=== PATIENT | male | born 1970 | race Caucasian/White ===

== ENCOUNTER 2019-11-11 07:31 | Outpatient (CLI) | payer OTHER, SELFPAY ==
--- NOTE | 2019-11-11 07:39 | NM_ITS ---
WS: [id number] NUCLEAR MEDICINE HIDA SCAN CLINICAL INFORMATION: RUQ PAIN TECHNIQUE: Following intravenous administration of 8.1 mCi of technetium 99m mebrofenin, images of th e abdomen were obtained over the course of 60 minutes. Next, gallbladder ejection fraction was determ ined by obtaining preprandial and one-hour postprandial images of the gallbladder following oral luis stion of Ensure. COMPARISON: Ultrasound 12 [id number] FINDINGS: Normal hepatic uptake at 5 minutes. Gallbladder is visualized by 10 minutes. No evidence of acute cho lecystitis. Normal small bowel activity. No evidence of choledocholithiasis. Normal common bile duct. Gallbladder ejection fraction 52% within normal limits. No evidence of chronic cholecystitis. NM/NM hepatobiliary w phar* [id number] IMPRESSION: 1. No evidence of acute or chronic cholecystitis. 2. Gallbladder ejection fraction 52% within normal limits
== END 2019-11-11 07:32 | disposition home or self-care (01) ==
PROVIDERS: Family Provider Nurse Practitioner; PCP Family Medicine; Visit Provider Surgery
DX: R10.11 Right upper quadrant pain (principal)
CPT/HCPCS: 78227; A9537

== ENCOUNTER 2019-12-19 06:19 | Day surgery (SDC) | payer OTHER, SELFPAY ==
[2019-12-19] VITALS (16 sets, daily range): BP systolic 123–168; BP diastolic 66–105; PULSE 60–92; RESP 16–20; TEMP 35.9–36.5; O2SAT 91–98; BMI 28.3
--- NOTE | 2019-12-19 08:37 | W.PM.OPSUD ---
Surgery/Procedure H&P Update DATE OF PROCEDURE: December 19, 2019 DATE H&P PERFORMED: 12/13/19 H&P UPDATE INFORMATION: H&P completed within last 30 days and No changes to prior documentation PREOP DIAGNOSIS: Chronic cholecystitis PLANNED PROCEDURE: Operation Date: 12/19/19 09:35 Proposed Procedures p [place] [address] R14.0(Not Applicable) - Oneil Peterson MD
--- NOTE | 2019-12-19 08:39 | P.ANESASSM_ITS ---
Pre-Anesthetic Assessment Pre-Anesthetic Assessment: Height/Weight: Height 1.75 m Weight 87.09 kg Temp Pulse Resp BP Pulse Ox 96.7 F L 69 18 154/105 98 12/19/19 06:46 12/19/19 06:46 12/19/19 06:46 12/19/19 06:46 12/19/19 06:46 Preop Diagnosis: Chronic cholecystitis Proposed Procedure: Operation Date: 12/19/19 09:35 Proposed Procedures p Laparoscopic [place]cyst[place] 52762 R14.0(Not Applicable) - Oneil Peterson MD Last intake: Intake Last Liquid Date 12/18/19 Last Liquid Time 19:00 Social: Social History: Alcohol (occ) and Tobacco Exam: Pre-Anes Outpt Exam: alert, oriented x 3, clear to auscultation bi laterally and regular rate & rhythm Airway: Submandibular: WNL Cervical ROM: WNL MP: 1 Dentition: Other (teeth ok) History/ROS: No significant history except as noted Pulmonary: Pulmonary: Sleep apnea CV/HEM: CV/HEM: CAD (stent placed in 1993) and HTN Comments: PPM : : None reported Hepatic: Hepatic: None reported GI: GI: GERD Musc/skel: Musc/skel: OA/DJD Neuropsych: Neuropsych: None reported Anesthetic Plan: ASA status: 3 Anesthesia: Anesthesia Evaluation and General Risk of > 500 ml blood loss (7ml/kg in children): No PFSH Anesthesia PFSH: Social History Smoking and tobacco status: former smoker Alcohol intake: never Lives independently: Yes Household members: spouse Marital status: Current occupational status: employed History of recent travel: No Data Anesthesia Cardiac Studies: No Data to Display
--- NOTE | 2019-12-19 11:40 | PM.OP ---
Operative Report Date of procedure: December 19, 2019 Pre-op Diagnosis: Chronic cholecystitis Post-op diagnosis: same Procedure Done: Laparoscopic cholecystectomy Pathology: Gallbladder Surgeon: Oneil Peterson Anesthesia: General Estimated blood loss (mL): 100 Condition: stable Disposition: PACU Procedure: The patient was taken to the operating room and was intubated under general anesthesia. After the antibiotic had been administered, the abdomen was prepped and draped in a sterile manner. Using a #15 blade, a 1 centimeter infraumbilical curvilinear incision was made and using an open Rubia technique the peritoneal cavity was entered. A 10 millimeter port was placed and 15 millimeters of pneumoperitoneum was created. A 10 millimeter, 30 degrees scope was then introduced. Three 5 millimeter ports were placed in the epigastric, midclavicular and the anterior axillary line two fingerbreadths below the costal margin on the right side under the direct visualization. Ratcheted forceps were introduced into the lateral most port and was used to retract the fundus of the gallbladder cephalad and using forceps the infundibulum of the gallbladder was retracted laterally. Using L-hook cautery the peritoneum overlying the Calot's triangle was opened medially and laterally until the cystic duct and the cystic artery were skeletonized. Dissection was carried along the body of the gallbladder and after ensuring critical view of safety, 4 clips applied on the cystic duct and 3 clips applied on the cystic artery and cut leaving, 3 clips on the remaining portion of the duct and 2 clips on the remaining portion of the artery. The rest of the gallbladder was dissected off the liver using L-hook cautery. Near the fundus of the gallbladder, there was a tear in the liver with venous bleeding which was controlled with a combination of electrocautery and 2 Surgicel's were placed. There was no bleeding or bile leaking noted from the gallbladder fossa and the clips appeared to be in place. An EndoCatch bag was introduced to remove the gallbladder. All the ports were removed under direct visualization and there was no bleeding noted from the port sites. The fascia of the umbilicus was closed using [id number] 0 Vicryl sutures and the subcutaneous tissue was approximated using 3-0 Vicryl sutures. The skin at all four ports were closed using 4-0 Monocryl and Dermabond. A total of 10 millimeters of 0.5% Marcaine was infiltrated around the port sites. The patient was stable throughout the procedure.
[2019-12-19] MEDS: fentaNYL 50 mcg/mL INJ 2mL IVP ×2 (11:44→11:49)
[2019-12-19] MEDS: morphine 4 mg/mL SDV 1 mL 2 MG IVP ×2 (11:57→11:59)
[2019-12-21] MEDS: sodium chloride 0.9% 1,000 ML 30 ML IV (14:19)
== END 2019-12-19 13:20 | disposition home or self-care (01) ==
PROVIDERS: Family Provider Nurse Practitioner; PCP Family Medicine; Visit Provider Surgery
PROC: 0FT44ZZ Resection of Gallbladder, Percutaneous Endoscopic Approach (ICD-10-PCS; CPT 47562; principal; 2019-12-19 09:35)
DX: K81.1 Chronic cholecystitis (principal); G47.30 Sleep apnea, unspecified; I25.10 Atherosclerotic heart disease of native coronary artery without angina pectoris; I10 Essential (primary) hypertension; Z95.5 Presence of coronary angioplasty implant and graft; K21.9 Gastro-esophageal reflux disease without esophagitis; M19.90 Unspecified osteoarthritis, unspecified site; Z87.891 Personal history of nicotine dependence
CPT/HCPCS: 47562; 12345; 88304; J0360; J0690; J2001; J2270; J2405; J2704; J2710; J3010; J3490

== ENCOUNTER → 2020-03-09 09:50 | Outpatient (BNVA) | payer OTHER, SELFPAY | PROVIDERS: Family Provider Nurse Practitioner; Visit Provider Family Medicine | DX: K21.9 Gastro-esophageal reflux disease without esophagitis (principal); Z13.6 Encounter for screening for cardiovascular disorders; R53.83 Other fatigue; F32.9 Major depressive disorder, single episode, unspecified | CPT/HCPCS: 80053; 80061; 84443; 85025 ==

== ENCOUNTER 2020-05-16 11:18 | Outpatient (CLI) | payer OTHER, SELFPAY ==
--- NOTE | 2020-05-16 11:27 | XRR_ITS ---
PROCEDURE INFORMATION: Exam: XR Abdomen, 1 View Exam date and time: 05/16/2020 11:36 AM Age: 49 years old Clinical indication: Pain; Other: Back; Prior surgery; Surgery date: 6+ months; Surgery type: Gallbladder removed; Additional info: Back pain. ? Kidney stones TECHNIQUE: Imaging protocol: XR of the abdomen. Views: Frontal supine view of the abdomen. 1 View. COMPARISON: ES surgery / GI images 12/19/2019 10:06 AM FINDINGS: Gastrointestinal tract: bowel gas pattern is nonspecific. Air filled large bowel including distal rectal gas. Moderate amount stool throughout the large bowel. Scattered loops of air filled small bowel none of which are dilated. Organs: Surgical clips are present in the region of the gallbladder fossa. Bones/joints: Unremarkable. XR/XR KUB [id number] IMPRESSION: 1. Bowel gas pattern is nonspecific. Air filled large bowel including distal rectal gas. 2. Moderate amount stool throughout the large bowel.
== END 2020-05-16 11:19 | disposition home or self-care (01) ==
PROVIDERS: Family Provider Nurse Practitioner; PCP Family Medicine; Visit Provider Nurse Practitioner Family
DX: M54.9 Dorsalgia, unspecified (principal)
CPT/HCPCS: 74018; 81000; 87086

== ENCOUNTER 2020-07-25 09:29 | Emergency (ER) | payer OTHER, SELFPAY ==
[2020-07-25 09:32] VITALS: BP 170/111; PULSE 63; RESP 16; TEMP 36.5; O2SAT 98; BMI 28.0
--- NOTE | 2020-07-25 09:43 | ED_ITS ---
HPI - Back Pain/Injury General: Chief Complaint: Back Pain/Injury Stated Complaint: BACK PAIN Time Seen by Provider: 07/25/20 09:31 History of Present Illness: HPI Narrative: Patient complains of low back pain pain right side especially. Been going on for couple days. 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 Has had a history of back problems in the past. Says it hurts get out of a chair hurts to sit down some also in his low back. MD elicited complaint: back pain Pertinent past history: prior back pain Onset (ago): day(s) Timing: constant and progressively worsening Severity: similar to previous episodes Quality: dull Location: lumbar spine and right flank Radiation: buttocks Exacerbating factors: movement, sitting upright and walking Relieving factors: immobilization and supine Associated symptoms: Reports no associated symptoms; Deny abdominal pain, chills, fever(s), nausea or vomiting Review of Systems Const: Denies: fever(s), chills or body aches Eyes: Denies: change in vision or blurry vision ENMT: Denies: throat pain or nasal congestion Card: Denies: chest pain or dyspnea on exertion Resp: Denies: dyspnea, productive cough or non-productive cough GI: Denies: abdominal pain, nausea or vomiting : Denies: difficulty urinating Musc: Reports: back pain; Denies: extremity pain Skin/Breast: Denies: rash Neuro: Denies: headache(s) Psych: Denies: anxiety or depression Jasmeet/Lymph: Denies: easy bruising PFS ED PFSH: Medical History (Updated 07/25/20 @ 09:48 by JONES Dejesus) H/O sinus bradycardia Hypertension ESTEFANI (obstructive sleep apnea) Surgical History H/O esophagogastroduodenoscopy H/O wrist surgery History of cholecystectomy Hx of coronary angioplasty 1994 Status post placement of other cardiac pacemaker Family History Other CAD (coronary artery disease) Cancer Diabetes Hypertension Denies family history of Anesthesia complication Bleeding disorder Social History (Updated 07/25/20 @ 09:36 by Drake Carias RN) Smoking and tobacco status: former smoker Alcohol intake: never Lives independently: Yes Household members: spouse Marital status: Current occupational status: employed History of recent travel: No Physical Exam Const: COMMON NORMALS: no acute distress, average body habitus and patient oriented x3 HENMT: COMMON NORMALS: normocephalic HEAD & SCALP: normal to inspection and normocephalic FACE & SINUS: normal facial exam Eye: COMMON NORMALS: conjunctivae normal GENERAL EYE: appearance normal, both eyes and all related structures CONJUNCTIVA: Yes conjunctivae normal Neck/C-Spine: COMMON NORMALS: no JVD Chest: COMMONS NORMALS: normal inspection of the chest Resp: COMMON NORMALS: normal respiratory effort and clear to auscultation bilaterally AUSCULTATION: clear to auscultation bilaterally Cardio: COMMON NORMALS: no JVD, regular rate and regular rhythm RATE: regular rate RHYTHM: regular rhythm GI: COMMON NORMALS: Normal to inspection, nondistended, normoactive bowel sounds present Back/Pelvis: THORACIC SPINE/UPPER BACK: Yes paraspinal muscle spasm LUMBAR SPINE/LOWER BACK: Yes straight leg raise positive right and Yes straight leg raise positive left OTHER: Patient has classic walking associated with low back bulging disc pain. Straight leg lift is worse at 20 degrees on the left right 2530 on the right bilateral straight leg lift deafly made it worse. Patient actually had a couple spasms while laying in bed. Extremity: COMMON NORMALS: normal to inspection and full ROM Neuro: COMMON NORMALS: patient oriented x3 Course Vital Signs: Vital signs: Vital Signs Temperature 98.7 F 07/25/20 09:53 Pulse Rate 61 07/25/20 09:53 Respiratory Rate 18 07/25/20 09:53 Blood Pressure 139/101 07/25/20 09:53 Pulse Oximetry 96 07/25/20 09:53 MDM - Back Pain/Injury MDM Narrative: Medical decision making narrative: Did discuss bulging disc with patient need to follow-up with his primary care provider to see about further study if he does not improve. Warned against doing any heavy lifting twisting and causes of low back radiculopathy Differential Diagnosis: Differential diagnosis back pain/injury: Likely lumbar radiculopathy, sciatica, strain of lumbar region and discitis Discharge Plan Discharge Patient Disposition: Home Clinical Impression: Strain of lumbar region Qualifiers: Encounter type: initial encounter Qualified Code(s): S39.012A - Strain of muscle, fascia and tendon of lower back, initial encounter Condition: Stable Prescriptions: New prednisone 20 mg tablet 20 mg PO DAILY 11 Days Qty: 11 RF: 0 cyclobenzaprine 5 mg tablet 5 mg PO TID PRN (Reason: muscle spasm) Qty: 14 RF: 0 tramadol 50 mg tablet 50 mg PO Q6H PRN (Reason: pain) Qty: 14 RF: 0 No Action pantoprazole 40 mg tablet,delayed release (DR/EC) 40 mg PO DAILY Qty: 90 RF: 1 loratadine [Claritin] 10 mg tablet 10 mg PO DAILY RF: 0 multivitamin Tablet 1 tab PO QAM RF: 0 acetaminophen [Tylenol] 325 mg tablet 650 mg PO BID RF: 0 cholecalciferol (vitamin D3) 5,000 unit capsule 5,000 unit PO ONCE RF: 0 cholestyramine (with sugar) [Questran] 4 gram powder in packet 4 gm PO BID Qty: 60 RF: 0 losartan 25 mg tablet 25 mg PO DAILY Qty: 30 RF: 2 sertraline 50 mg tablet 50 mg PO DAILY Qty: 30 RF: 2 Discharge Orders: Discharge Order (Routine); Ordered 07/25/20 Ordered By: Kyle Marie Referrals: Riddhi Bray FNP [Family Provider] - Fatoumata Callaway DO [Primary Care Provider] - Discharge Diet: Usual diet Discharge Activity: Limit activity as instructed Patient Instructions: Low Back Strain (ED), Lumbar Radiculopathy (ED) Activity Restrictions/Additional Instructions: Follow-up with medical provider as directed. Take medications as prescribed. Return to the ER or your medical provider if condition worsens. Please read and understand discharge instructions. If any questions ask please. Off work rest the week. Light duty.no lifting over 10 pounds or shoveling for next to 3 weeks. Stand Alone Forms: Work/School Release Discharge Date/Time: 07/25/20 10:00 Coding Level of Care Code ED Program Host for Yomaira Fwrosy Exam Comprehensive
[2020-07-25] MEDS: predniSONE 20 mg Tablet 60 MG PO (09:50)
[2020-07-25] MEDS: TRAMadol 50 mg Tablet PO (09:50)
[2020-07-25 09:52] VITALS: BP 139/101; PULSE 61; RESP 18; O2SAT 95
[2020-07-25 09:53] VITALS: BP 139/101; PULSE 61; RESP 18; TEMP 37.1; O2SAT 96
== END 2020-07-25 10:00 | disposition home or self-care (01) ==
LOC: ER 09:49
PROVIDERS: Emergency Provider Nurse Practitioner Family; Family Provider Nurse Practitioner; PCP Family Medicine
DX: S39.012A Strain of muscle, fascia and tendon of lower back, initial encounter (principal); I10 Essential (primary) hypertension; Z98.61 Coronary angioplasty status; Z95.0 Presence of cardiac pacemaker; Z87.891 Personal history of nicotine dependence; X50.9XXA Other and unspecified overexertion or strenuous movements or postures, initial encounter
CPT/HCPCS: 12345; 99281; 99283; J7512

== ENCOUNTER 2020-08-06 07:43 | Outpatient (CLI) | payer OTHER, SELFPAY ==
--- NOTE | 2020-08-06 08:00 | XR_ITS ---
WS: [id number] Lumbar spine, 3 views, 08/06/2020 Clinical Data: low back back Comparison: None. Findings: No compression fractures or subluxation is seen. No disc space narrowing is seen. The transverse proc esses and SI joints are normal. Minimal anterior spurring of the L1-L5 vertebral bodies is seen. There are clips in the right upper q uadrant from a cholecystectomy. There is fecal material in the descending colon. XR/XR lumbar spine 2-3V* [id number] Impression: Mild osteoarthritis of all the lumbar vertebral bodies.
== END 2020-08-06 07:44 | disposition home or self-care (01) ==
PROVIDERS: Family Provider Nurse Practitioner; PCP Family Medicine; Visit Provider Family Medicine
DX: M54.5 Low back pain (principal); M47.816 Spondylosis without myelopathy or radiculopathy, lumbar region
CPT/HCPCS: 72100

== ENCOUNTER → 2021-01-18 08:37 | Outpatient (BNVA) | payer OTHER, SELFPAY | PROVIDERS: Family Provider Nurse Practitioner; PCP Family Medicine; Visit Provider Family Medicine | DX: I10 Essential (primary) hypertension (principal) | CPT/HCPCS: 80053; 80061; 82043; 85025 ==

== ENCOUNTER → 2021-03-08 08:26 | Outpatient (BNVA) | payer OTHER, SELFPAY | PROVIDERS: Family Provider Nurse Practitioner; PCP Family Medicine; Visit Provider Family Medicine | DX: E78.5 Hyperlipidemia, unspecified (principal) | CPT/HCPCS: 80053 ==

== ENCOUNTER → 2021-07-26 10:11 | Outpatient (BNVA) | payer OTHER, SELFPAY | PROVIDERS: Family Provider Nurse Practitioner; PCP Family Medicine; Visit Provider Family Medicine | DX: E78.5 Hyperlipidemia, unspecified (principal); M25.572 Pain in left ankle and joints of left foot; K21.9 Gastro-esophageal reflux disease without esophagitis; F32.9 Major depressive disorder, single episode, unspecified; G89.29 Other chronic pain; I10 Essential (primary) hypertension; Z68.29 Body mass index [BMI] 29.0-29.9, adult; F17.211 Nicotine dependence, cigarettes, in remission; Z71.89 Other specified counseling | CPT/HCPCS: 80053; 80061 ==

== ENCOUNTER → 2021-08-14 13:40 | Outpatient (BNVA) | payer OTHER, SELFPAY | PROVIDERS: Family Provider Nurse Practitioner; PCP Family Medicine; Visit Provider Podiatrist Foot & Ankle Surgery | DX: M79.672 Pain in left foot (principal) | CPT/HCPCS: 73610; 73630 ==

== ENCOUNTER → 2022-01-24 09:16 | Outpatient (BNVA) | payer OTHER, SELFPAY | PROVIDERS: Family Provider Nurse Practitioner; PCP Family Medicine; Visit Provider Family Medicine | DX: E78.5 Hyperlipidemia, unspecified (principal); R35.1 Nocturia; R63.5 Abnormal weight gain; R53.83 Other fatigue; I10 Essential (primary) hypertension; K21.9 Gastro-esophageal reflux disease without esophagitis; F32.9 Major depressive disorder, single episode, unspecified; F17.211 Nicotine dependence, cigarettes, in remission; Z68.30 Body mass index [BMI] 30.0-30.9, adult | CPT/HCPCS: 80053; 80061; 84153; 84403; 84443; 85025 ==

== ENCOUNTER 2022-05-08 15:51 | Emergency (ER) | payer OTHER, SELFPAY ==
[2022-05-08 16:08] VITALS: BP 134/87; PULSE 73; RESP 18; TEMP 36.4; O2SAT 96
--- NOTE | 2022-05-08 17:15 | ECG_ITS ---
[facility] Test Date: 2022-05-08 Pat Name: Gil Espinal Department: Room: Gender: Male Digital Marketing Analyst: : 1970 Requested By: Neto Tellez Order Number: [id number] Anselmo MD: Arnaldo Rivas M.D. Measurements Intervals [place] Rate: 61 P: 252 FL: 240 QRS: -6 QRSD: 106 T: 6 QT: 375 QTc: 381 Interpretive Statements ELECTRONIC ATRIAL PACEMAKER ABNORMAL RHYTHM ECG Compared to ECG 05/08/2022 16:07:38 Sinus rhythm no longer present First degree AV block no longer present Intraventricular conduction delay no longer present Electronically Signed On 05-08-2022 19:26:02 CDT by Arnaldo Rivas M.D. [id number]
--- NOTE | 2022-05-08 17:15 | XRR_ITS ---
PROCEDURE INFORMATION: Exam: XR Chest Exam date and time: 05/08/2022 6:01 PM Age: 51 years old Clinical indication: Pain; Chest pressure; Prior surgery; Surgery date: 6+ months; Surgery type: Pacemaker; Additional info: Chest pain TECHNIQUE: Imaging protocol: Radiologic exam of the chest. Views: 1 view. COMPARISON: CR XR KUB [id number] 05/16/2020 11:33 AM FINDINGS: Tubes, catheters and devices: Two lead pacer device noted in the left chest wall. Lungs: Unremarkable. No consolidation. Pleural spaces: Unremarkable. No pleural effusion. No pneumothorax. Heart/Mediastinum: Unremarkable. No cardiomegaly. Vasculature: Vascular stent projects over the right upper chest. Bones/joints: Unremarkable. XR/XR chest 1V portable [id number] IMPRESSION: No acute findings.
[2022-05-08] MEDS: aspirin 81 mg Chew Tablet 324 MG PO (17:39)
--- NOTE | 2022-05-08 17:39 | ED_ITS ---
Documented by User: Neto Cobos DO 05/09/22 14:23 HPI - Chest Pain General: Chief Complaint: Chest Pain Stated Complaint: high BP, chest pain Time Seen by Provider: 05/08/22 17:15 Source: patient Mode of arrival: ambulatory History of Present Illness: 51-year-old male presents emergency room with complaints of elevated blood pressure. He has been monitoring his blood pressure at home and is concerned because his diastolic has been above 90 at times. Additionally he is complaining about chest pain intermittently radiating into his left arm. He states he had a stress test several years ago that was negative he has no known history of coronary artery disease he is on losartan and amlodipine. Patient is not diabetic. MD complaint: chest pain Onset (ago): hour(s) Timing of current episode: episodic Prior episodes: No Onset: during rest Pain location: left chest Pain radiation: left arm Severity: moderate Quality: sharp Relieving factors: nothing Exacerbating factors: nothing Associated symptoms: Deny abdominal pain, diaphoresis, dyspnea, fever(s), leg edema, nausea, palpitations, sense of impending doom, syncope or vomiting Treatment prior to arrival: none Review of Systems Const: Denies: fever(s), chills, fatigue, malaise or diaphoresis ENMT: Denies: throat pain, ear or mastoid pain, nasal discharge or nasal c ongestion Card: Reports: chest pain; Denies: palpitations, irregular heart rhythm, edema, swelling of feet/ankles or syncope Resp: Denies: dyspnea, productive cough, non-productive cough or wheezing GI: Denies: abdominal pain, nausea or vomiting : Denies: flank pain, difficulty urinating, dysuria, urinary frequency or urinary urgency Musc: Denies: neck pain or back pain Skin/Breast: Denies: rash or pruritus PFSH ED PFSH: Medical History Dyslipidemia H/O sinus bradycardia Hypertension ESTEFANI (obstructive sleep apnea) Surgical History H/O esophagogastroduodenoscopy H/O wrist surgery History of cholecystectomy Hx of coronary angioplasty 1994 Status post placement of other cardiac pacemaker Family History Other CAD (coronary artery disease) Cancer Diabetes Hypertension Denies family history of Anesthesia complication Bleeding disorder Social History Smoking and tobacco status: former smoker Alcohol intake: never Lives independently: Yes Household members: spouse Marital status: Current occupational status: employed History of recent travel: No Physical Exam Const: COMMON NORMALS: no acute distress GENERAL APPEARANCE: cooperative and comfortable ORIENTATION/CONSCIOUSNESS: Yes awake, Yes oriented to person, Yes oriented to place and Yes oriented to time HENMT: COMMON NORMALS: normocephalic, atraumatic and hearing grossly normal bilaterally HEAD & SCALP: normocephalic and atraumatic Resp: COMMON NORMALS: normal respiratory effort, No retractions, No use of accessory muscles and clear to auscultation bilaterally AUSCULTATION: clear to auscultation bilaterally Cardio: COMMON NORMALS: regular rate, regular rhythm and No murmurs present (Cardio) RATE: regular rate RHYTHM: regular rhythm GI: COMMON NORMALS: Soft to palpation and No hepatosplenomegaly present AUSCULTATION: Yes normoactive bowel sounds PALPATION: Yes Soft to palpation, No Tenderness to palpation present (GI), No Guarding due to palpation present (GI) and Yes No hepatosplenomegaly present Extremity: COMMON NORMALS: normal to inspection, capillary refill normal, no clubbing, cyanosis or edema, no calf tenderness and no pedal edema Neuro: SENSORIUM/ORIENTATION: Yes oriented to person, Yes oriented to place and Yes oriented to time Skin: COMMON NORMALS: no rashes or lesions noted GENERAL SKIN EXAM: no rashes or lesions noted Course Vital Signs: Vital signs: Vital Signs Temperature 97.6 F 05/08/22 16:08 Pulse Rate 67 05/08/22 18:52 Respiratory Rate 17 05/08/22 18:52 Blood Pressure 133/88 05/08/22 18:52 Pulse Oximetry 96 05/08/22 18:52 MDM - Chest Pain Medical Decision Making Care signed out to Dr. Rubio at change of shift. See final notes for diagnosis and disposition. Patient presents here with chest pain that is atypical in nature has been going on for a month his troponin here is negative EKG and x-ray are normal as well. He is stable for discharge we will get him follow-up with cardiology he is to follow-up as scheduled and return to ER if worsening he understands agrees to plan. Lab Data : 05/08/22 17:51 05/08/22 17:51 Radiology Impressions Chest X-Ray 05/08/22 17:15 IMPRESSION: No acute findings. Laboratory Results WBC 9.7 10^3/uL (4.0-10.0) 05/08/22 17:51 RBC 5.01 10^6/uL (4.1-5.3) 05/08/22 17:51 Hgb 16.8 g/dL (11.7-16.6) H 05/08/22 17:51 Hct 47.5 % (42.0-52.0) 05/08/22 17:51 MCV 94.8 fl (80-94) H 05/08/22 17:51 MCH 33.5 pg (28.0-34.0) 05/08/22 17:51 MCHC 35.4 g/dL (30.0-36.0) 05/08/22 17:51 RDW 12.3 % (12.1-15.1) 05/08/22 17:51 Plt Count 327 10^3/cmm (130-400) 05/08/22 17:51 MPV 9.6 fL (7.4-10.4) 05/08/22 17:51 Neut % (Auto) 60.8 % 05/08/22 17:51 Lymph % (Auto) 28.0 % 05/08/22 17:51 [place] % (Auto) 7.8 % 05/08/22 17:51 Eos % (Auto) 2.2 % 05/08/22 17:51 Baso % (Auto) 0.8 % 05/08/22 17:51 Neut # (Auto) 5.91 10^3/uL (1.8-7.7) 05/08/22 17:51 Lymph # (Auto) 2.7 10^3/uL (0.8-4.8) 05/08/22 17:51 [place] # (Auto) 0.8 10^3/uL (0.2-0.9) 05/08/22 17:51 Eos # (Auto) 0.2 10^3/uL (0.0-0.8) 05/08/22 17:51 Baso # (Auto) 0.1 10^3/uL (0.0-0.1) 05/08/22 17:51 Nucleated RBC % (auto) 0 % 05/08/22 17:51 Nucleated RBCs # 0.0 /100WBC 05/08/22 17:51 Sodium 140 mmol/L (136-145) 05/08/22 17:51 Potassium 3.9 mmol/L (3.5-5.1) 05/08/22 17:51 Chloride 101 mmol/L (98-107) 05/08/22 17:51 Carbon Dioxide 23 mmol/L (22-29) 05/08/22 17:51 Anion Gap 19.9 (5-19) H 05/08/22 17:51 BUN 12 mg/dL (6-20) 05/08/22 17:51 Creatinine 0.8 mg/dL (0.7-1.2) 05/08/22 17:51 GFR Calculation 101.9 mL/min (90-130) 05/08/22 17:51 Glucose 71 mg/dL (65-115) 05/08/22 17:51 Calculated Osmolality 288 mOsm/kg (285-295) 05/08/22 17:51 Calcium 9.3 mg/dL (8.5-10.5) 05/08/22 17:51 Total Bilirubin 0.6 mg/dL (0.15-1.2) 05/08/22 17:51 AST 25 U/L (0-40) 05/08/22 17:51 ALT 38 U/L (0-41) 05/08/22 17:51 Alkaline Phosphatase 82 IU/L (40-130) 05/08/22 17:51 Troponin T Baseline 6 ng/L (0-15) 05/08/22 17:51 Total Protein 7.7 g/dL (6.6-8.7) 05/08/22 17:51 Albumin 5.1 g/dL (3.5-5.2) 05/08/22 17:51 Globulin 2.6 g/dL (1.3-4.6) 05/08/22 17:51 Discharge Plan Discharge Patient Disposition: Home Clinical Impression: Chest pain Qualifiers: Chest pain type: unspecified Qualified Code(s): R07.9 - Chest pain, unspecified Condition: Stable Prescriptions: No Action loratadine [Claritin] 10 mg tablet 10 mg PO DAILY 0RF multivitamin Tablet 1 tab PO QAM 0RF acetaminophen [Tylenol] 325 mg tablet 650 mg PO BID 0RF cholecalciferol (vitamin D3) 5,000 unit capsule 5,000 unit PO ONCE 0RF Rexulti 1 mg tablet 1 mg PO DAILY Qty: 30 2RF Rx Instructions: Please fill 15 day supply first cyclobenzaprine 10 mg tablet 10 mg PO TID PRN (Reason: muscle spasm) Qty: 180 1RF pantoprazole 40 mg tablet,delayed release (DR/EC) 40 mg PO DAILY Qty: 90 1RF losartan 100 mg tablet 100 mg PO DAILY Qty: 90 1RF sertraline 100 mg tablet See Rx Instructions .ROUTE .COMPLEX Qty: 30 2RF Dose Instruction: TAKE 1 TABLET BY MOUTH DAILY Rx Instructions: TAKE 1 TABLET BY MOUTH DAILY ezetimibe 10 mg tablet See Rx Instructions .ROUTE .COMPLEX Qty: 90 0RF Dose Instruction: TAKE ONE TABLET BY MOUTH DAILY Rx Instructions: TAKE ONE TABLET BY MOUTH DAILY amlodipine 5 mg tablet See Rx Instructions .ROUTE .COMPLEX Qty: 30 0RF Dose Instruction: TAKE ONE TABLET (5 MG) BY MOUTH DAILY Rx Instructions: TAKE ONE TABLET (5 MG) BY MOUTH DAILY Discharge Orders: Discharge ED (Routine); Ordered 05/08/22 Ordered By: Natacha Rubio Referrals: Mika Pedraza M.D [Physician] - 1-3 days Fatoumata Callaway DO [Primary Care Provider] - Discharge Diet: Advance as tolerated Discharge Activity: Resume usual activity Patient Instructions: Chest Pain (ED) Coding Level of Care Code ED Jury Consultant for Chg Fwd Documented by User: Natacha Rubio MD 05/08/22 18:48 HPI - Chest Pain General: Chief Complaint: Chest Pain Stated Complaint: high BP, chest pain Time Seen by Provider: 05/08/22 17:15 PFSH ED PFSH: Medical History Dyslipidemia H/O sinus bradycardia Hypertension ESTEFANI (obstructive sleep apnea) Surgical History H/O esophagogastroduodenoscopy H/O wrist surgery History of cholecystectomy Hx of coronary angioplasty 1994 Status post placement of other cardiac pacemaker Family History Other CAD (coronary artery disease) Cancer Diabetes Hypertension Denies family history of Anesthesia complication Bleeding disorder Social History Smoking and tobacco status: former smoker Alcohol intake: never Lives independently: Yes Household members: spouse Marital status: Current occupational status: employed History of recent travel: No Course Vital Signs: Vital signs: Vital Signs Temperature 97.6 F 05/08/22 16:08 Pulse Rate 67 05/08/22 18:52 Respiratory Rate 17 05/08/22 18:52 Blood Pressure 133/88 05/08/22 18:52 Pulse Oximetry 96 05/08/22 18:52 MDM - Chest Pain Medical Decision Making Patient presents here with chest pain that is atypical in nature has been going on for a month his troponin here is negative EKG and x-ray are normal as well. He is stable for discharge we will get him follow-up with cardiology he is to follow-up as scheduled and return to ER if worsening he understands agrees to plan. Lab Data : 05/08/22 17:51 05/08/22 17:51 Radiology Impressions Chest X-Ray 05/08/22 17:15 IMPRESSION: No acute findings. Laboratory Results WBC 9.7 10^3/uL (4.0-10.0) 05/08/22 17:51 RBC 5.01 10^6/uL (4.1-5.3) 05/08/22 17:51 Hgb 16.8 g/dL (11.7-16.6) H 05/08/22 17:51 Hct 47.5 % (42.0-52.0) 05/08/22 17:51 MCV 94.8 fl (80-94) H 05/08/22 17:51 MCH 33.5 pg (28.0-34.0) 05/08/22 17:51 MCHC 35.4 g/dL (30.0-36.0) 05/08/22 17:51 RDW 12.3 % (12.1-15.1) 05/08/22 17:51 Plt Count 327 10^3/cmm (130-400) 05/08/22 17:51 MPV 9.6 fL (7.4-10.4) 05/08/22 17:51 Neut % (Auto) 60.8 % 05/08/22 17:51 Lymph % (Auto) 28.0 % 05/08/22 17:51 [place] % (Auto) 7.8 % 05/08/22 17:51 Eos % (Auto) 2.2 % 05/08/22 17:51 Baso % (Auto) 0.8 % 05/08/22 17:51 Neut # (Auto) 5.91 10^3/uL (1.8-7.7) 05/08/22 17:51 Lymph # (Auto) 2.7 10^3/uL (0.8-4.8) 05/08/22 17:51 [place] # (Auto) 0.8 10^3/uL (0.2-0.9) 05/08/22 17:51 Eos # (Auto) 0.2 10^3/uL (0.0-0.8) 05/08/22 17:51 Baso # (Auto) 0.1 10^3/uL (0.0-0.1) 05/08/22 17:51 Nucleated RBC % (auto) 0 % 05/08/22 17:51 Nucleated RBCs # 0.0 /100WBC 05/08/22 17:51 Sodium 140 mmol/L (136-145) 05/08/22 17:51 Potassium 3.9 mmol/L (3.5-5.1) 05/08/22 17:51 Chloride 101 mmol/L (98-107) 05/08/22 17:51 Carbon Dioxide 23 mmol/L (22-29) 05/08/22 17:51 Anion Gap 19.9 (5-19) H 05/08/22 17:51 BUN 12 mg/dL (6-20) 05/08/22 17:51 Creatinine 0.8 mg/dL (0.7-1.2) 05/08/22 17:51 GFR Calculation 101.9 mL/min (90-130) 05/08/22 17:51 Glucose 71 mg/dL (65-115) 05/08/22 17:51 Calculated Osmolality 288 mOsm/kg (285-295) 05/08/22 17:51 Calcium 9.3 mg/dL (8.5-10.5) 05/08/22 17:51 Total Bilirubin 0.6 mg/dL (0.15-1.2) 05/08/22 17:51 AST 25 U/L (0-40) 05/08/22 17:51 ALT 38 U/L (0-41) 05/08/22 17:51 Alkaline Phosphatase 82 IU/L (40-130) 05/08/22 17:51 Troponin T Baseline 6 ng/L (0-15) 05/08/22 17:51 Total Protein 7.7 g/dL (6.6-8.7) 05/08/22 17:51 Albumin 5.1 g/dL (3.5-5.2) 05/08/22 17:51 Globulin 2.6 g/dL (1.3-4.6) 05/08/22 17:51 Discharge Plan Discharge Patient Disposition: Home Clinical Impression: Chest pain Qualifiers: Chest pain type: unspecified Qualified Code(s): R07.9 - Chest pain, unspecified Condition: Stable Prescriptions: No Action loratadine [Claritin] 10 mg tablet 10 mg PO DAILY 0RF multivitamin Tablet 1 tab PO QAM 0RF acetaminophen [Tylenol] 325 mg tablet 650 mg PO BID 0RF cholecalciferol (vitamin D3) 5,000 unit capsule 5,000 unit PO ONCE 0RF Rexulti 1 mg tablet 1 mg PO DAILY Qty: 30 2RF Rx Instructions: Please fill 15 day supply first cyclobenzaprine 10 mg tablet 10 mg PO TID PRN (Reason: muscle spasm) Qty: 180 1RF pantoprazole 40 mg tablet,delayed release (DR/EC) 40 mg PO DAILY Qty: 90 1RF losartan 100 mg tablet 100 mg PO DAILY Qty: 90 1RF sertraline 100 mg tablet See Rx Instructions .ROUTE .COMPLEX Qty: 30 2RF Dose Instruction: TAKE 1 TABLET BY MOUTH DAILY Rx Instructions: TAKE 1 TABLET BY MOUTH DAILY ezetimibe 10 mg tablet See Rx Instructions .ROUTE .COMPLEX Qty: 90 0RF Dose Instruction: TAKE ONE TABLET BY MOUTH DAILY Rx Instructions: TAKE ONE TABLET BY MOUTH DAILY amlodipine 5 mg tablet See Rx Instructions .ROUTE .COMPLEX Qty: 30 0RF Dose Instruction: TAKE ONE TABLET (5 MG) BY MOUTH DAILY Rx Instructions: TAKE ONE TABLET (5 MG) BY MOUTH DAILY Discharge Orders: Discharge ED (Routine); Ordered 05/08/22 Ordered By: Natacha Rubio Referrals: Mika Pedraza M.D [Physician] - 1-3 days Fatoumata Callaway DO [Primary Care Provider] - Discharge Diet: Advance as tolerated Discharge Activity: Resume usual activity Patient Instructions: Chest Pain (ED) Coding Level of Care Code ED Jury Consultant for Yomaira Fleming
--- NOTE | 2022-05-08 18:03 | PC.NURSE ---
Pt placed on continuous cardiac, BP, and SpO2 monitoring.
[2022-05-08 18:04] VITALS: BP 123/93; PULSE 65; RESP 17; O2SAT 95
[2022-05-08 18:04] LABS: Basophils # 0.1 10^3/uL (0.0-0.1); Basophils % 0.8 %; Eosinophils # 0.2 10^3/uL (0.0-0.8); Eosinophils % 2.2 %; Hematocrit 47.5 % (42.0-52.0); Hemoglobin 16.8 g/dL (11.7-16.6); Lymphocytes # 2.7 10^3/uL (0.8-4.8); Mean Corpuscular HGB Conc 35.4 g/dL (30.0-36.0); Mean Corpuscular Hemoglobin 33.5 pg (28.0-34.0); Mean Corpuscular Volume 94.8 fl (80-94); Mean Platelet Volume 9.6 fL (7.4-10.4); Monocytes # 0.8 10^3/uL (0.2-0.9); Monocytes % 7.8 %; Neutrophils # 5.91 10^3/uL (1.8-7.7); Neutrophils % 60.8 %; Nucleated Red Blood Cells % 0 %; Platelet Count 327 10^3/cmm (130-400); Red Blood Count 5.01 10^6/uL (4.1-5.3); Red Cell Distribution Width 12.3 % (12.1-15.1); White Blood Count 9.7 10^3/uL (4.0-10.0)
[2022-05-08 18:26] LABS: Troponin(5th) Baseline 6 ng/L (0-15)
[2022-05-08 18:28] LABS: Alanine Aminotransferase 38 U/L (0-41); Albumin Level 5.1 g/dL (3.5-5.2); Alkaline Phosphatase 82 IU/L (40-130); Anion Gap 19.9 (5-19); Aspartate Amino Transferase 25 U/L (0-40); Blood Urea Nitrogen 12 mg/dL (6-20); Calcium 9.3 mg/dL (8.5-10.5); Carbon Dioxide 23 mmol/L (22-29); Chloride 101 mmol/L (98-107); Globulin 2.6 g/dL (1.3-4.6); Glomerular Filtration Rate 101.9 mL/min (90-130); Glucose 71 mg/dL (65-115); Osmolality Calculated 288 mOsm/kg (285-295); Potassium 3.9 mmol/L (3.5-5.1); Sodium 140 mmol/L (136-145); Total Bilirubin 0.6 mg/dL (0.15-1.2); Total Protein 7.7 g/dL (6.6-8.7)
[2022-05-08 18:52] VITALS: BP 133/88; PULSE 67; RESP 17; O2SAT 96
--- NOTE | 2022-05-08 19:15 | ECG_ITS ---
[facility] Test Date: 2022-05-08 Pat Name: Gil Espinal Department: Room: Gender: Male Message Clerk: : 1970 Requested By: Neto Tellez Order Number: [id number] Anselmo MD: Arnaldo Rivas M.D. Measurements Intervals [place] Rate: 73 P: 46 NM: 211 QRS: 3 QRSD: 112 T: 31 QT: 366 QTc: 404 Interpretive Statements SINUS RHYTHM WITH FIRST DEGREE AV BLOCK POSSIBLE LEFT ATRIAL ENLARGEMENT [-0.1mV P-WAVE IN V1/V2] MODERATE INTRAVENTRICULAR CONDUCTION DELAY [110+ ms QRS DURATION] No previous ECG available for comparison Electronically Signed On 05-08-2022 19:27:06 CDT by Arnaldo Rivas M.D. [id number]
--- NOTE | 2022-05-12 14:02 | DCPLANNER ---
Addendum entered by Phyllis Herrera 05/26/22 18:07: assistant produce manager was sent the following message from [facility] [place] regarding follow up appointment at [facility] [place]: He is an established patient I spoke with him and he said he would call and schedule an appointment after he has had his stress test. Thank you ! Original Note: assistant produce manager had message to schedule a followup appointment for patient with cardiology. assistant produce manager sent patients information to the front office staff at [facility] [place]. Patients information will be printed and reviewed. Clinic will call patient with appointment information.
== END 2022-05-08 18:31 | disposition home or self-care (01) ==
PROVIDERS: Family Medicine; Emergency Provider Emergency Medicine; PCP Family Medicine
DX: R07.9 Chest pain, unspecified (principal); I10 Essential (primary) hypertension
CPT/HCPCS: 71045; 80053; 84484; 85025; 93005; 99285

== ENCOUNTER 2022-08-12 08:34 | Outpatient (CLI) | payer OTHER, SELFPAY ==
--- NOTE | 2022-08-12 | ECG_ITS ---
[facility] Test Date: 2022-08-12 Pat Name: Gil Espinal Department: Room: Gender: Male Community Health Nurse Supervisor: : 1970 Requested By: Mika Pedraza Order Number: [id number] Anselmo MD: Mika Pderaza M.D. Interpretive Statements NAME OF STUDY: LEXISCAN SESTAMIBI STRESS TEST INDICATION: [Chest Pain] Procedure: At the baseline, the blood pressure was 121/82 mmHg with a heart rate of 67 bpm. The electrocardiogram showed normal sinus rhythm, first degee AV block, normal axis with normal ST and T's. The Lexiscan was infused over a period of 20 seconds. A total of 0.4 mg of Lexiscan was infused. The stress phase was continued for a total of 5 minutes. Heart rate was at the end of stress phase was 67 bpm and a blood pressure of 118/73 mmHg. The EKG at the peak infusion revealed normal sinus rhythm with no significant ST-T wave changes. Sestamibi was injected 20 seconds after the Lexiscan infusion. Blood pressure at the end of recovery phase was 108/69 mmHg with a heart rate of 62 bpm. Conclusion: 1. Normal EKG response to Lexiscan infusion 2. No Lexiscan induced chest pain or cardiac arrhythmia. 3. Normal blood pressure and heart rate response. 4. Sestamibi/sestamibi perfusion scan pending; see separate report. Electronically Signed On 08-13-2022 10:17:17 CDT by Mika Pedraza M.D. [id number]
[2022-08-12 09:11] VITALS: BMI 31.0
--- NOTE | 2022-08-12 09:13 | NMCV_ITS ---
NM luis angel perf SPECT r/s* [id number] Teddy Yifanlito Age: 51 Gender: M : 1970 Exam Date: 08/12/2022 09:36 Ordering Phys: Mika Pedraza M.D ([email or web address]) Technologist: URSULA Gilmore Exam Location: [facility] Indications: CHEST PAIN STRESS TEST Please see separate stress test report in [facility] for full findings IMAGE PROTOCOL Rest/Stress 1 Lexiscan Day Radiopharmaceutical Dose (mCi) Administration Site Administered by Rest: Tc-99m 10.5 IV URSULA Price Sestamibi Stress:Tc-99m 33.0 IV URSULA Price Sestamibi Rest: 12-Aug-2022 60 Discovery 630 Stress: 12-Aug-2022 30 Discovery 630 0.4mg Lexiscan. Images obtained in supine and prone position. SPECT RESULTS Technical Quality: Excellent Raw Data Analysis: Normal Image Corrections: No attenuation or motion correction applied Summed Stress Score: 0 Summed Rest Score: 1 Summed Difference Score: 0 PERFUSION FINDINGS SPECT images demonstrate homogeneous tracer distribution throughout the myocardium. FUNCTIONAL RESULTS (calculated via Gated SPECT) Stress Image LV EF (%): 65 Stress EDV (mL):108 TID: 0.96 Stress ESV (mL):38 FUNCTIONAL FINDINGS: There is normal left ventricular systolic function. IMPRESSIONS 1. Normal myocardial perfusion imaging with no evidence of ischemia 2. LV systolic function is normal Mika Pedraza MD (Electronically Signed) Final Date: 12 August 2022 16:56 S
[2022-08-12] MEDS: regadenoson 0.4 Mg/5 ml Syringe IVP (10:43)
[2022-08-12 11:01] VITALS: BP 108/67; PULSE 68
== END 2022-08-12 08:35 | disposition home or self-care (01) ==
PROVIDERS: PCP Family Medicine; Visit Provider Internal Medicine
DX: R07.9 Chest pain, unspecified (principal)
CPT/HCPCS: 78452; 93017; A9500; J2785

== ENCOUNTER → 2022-09-12 10:13 | Outpatient (BNVA) | payer OTHER, SELFPAY | PROVIDERS: PCP Family Medicine; Visit Provider Family Medicine | DX: I10 Essential (primary) hypertension (principal); F32.9 Major depressive disorder, single episode, unspecified; K21.9 Gastro-esophageal reflux disease without esophagitis | CPT/HCPCS: 84403; 84443 ==

== ENCOUNTER → 2022-11-07 11:24 | Outpatient (BNVA) | payer OTHER, SELFPAY | PROVIDERS: PCP Family Medicine; Visit Provider Family Medicine | DX: R60.0 Localized edema (principal); R06.01 Orthopnea | CPT/HCPCS: 80048; 83880 ==

== ENCOUNTER → 2022-12-05 12:24 | Outpatient (BNVA) | payer OTHER, SELFPAY | PROVIDERS: PCP Family Medicine; Visit Provider Family Medicine | DX: R79.89 Other specified abnormal findings of blood chemistry (principal); I10 Essential (primary) hypertension | CPT/HCPCS: 80048; 84403 ==

== ENCOUNTER → 2023-01-02 13:11 | Outpatient (BNVA) | payer OTHER, SELFPAY | PROVIDERS: PCP Family Medicine; Visit Provider Family Medicine | DX: I10 Essential (primary) hypertension (principal) | CPT/HCPCS: 80048 ==

== ENCOUNTER → 2023-03-06 10:02 | Outpatient (BNVA) | payer OTHER, SELFPAY | PROVIDERS: PCP Family Medicine; Visit Provider Family Medicine | DX: R79.89 Other specified abnormal findings of blood chemistry (principal) | CPT/HCPCS: 84403 ==

== ENCOUNTER 2023-05-18 14:46 | Emergency (ER) | payer OTHER, SELFPAY ==
[2023-05-18 15:09] VITALS: BP 123/76; PULSE 65; RESP 16; TEMP 36.4; O2SAT 97; BMI 32.5
--- NOTE | 2023-05-18 17:08 | W.ED.BACK ---
HPI - Back Pain/Injury General: Chief Complaint: Back Pain/Injury Stated Complaint: lower RT back/hip pain Time Seen by Provider: 05/18/23 17:03 History of Present Illness: 52-year-old male patient comes in with right mid to low back pain mainly in the flank area. Patient does have a history of renal calculi. Patient appears nontoxic. Patient appears in no acute distress. Patient reports a history of gallbladder removal. Patient also has a pacemaker. Patient takes medications for hypertension. Patient appears nontoxic. Patient reports that the pain is better than it was this morning. Associated symptoms: Reports nausea Review of Systems General: Reports: 10 or more systems reviewed and unremarkable except in HPI and below Card: Denies: chest pain Resp: Denies: dyspnea GI: Reports: nausea : Reports: flank pain Musc: Reports: back pain Skin/Breast: Denies: rash PFSH ED PFSH: Medical History Dyslipidemia H/O sinus bradycardia Hypertension ESTEFANI (obstructive sleep apnea) Surgical History H/O esophagogastroduodenoscopy H/O wrist surgery History of cholecystectomy Hx of coronary angioplasty 1994 Status post placement of other cardiac pacemaker Family History Other CAD (coronary artery disease) Cancer Diabetes Hypertension Denies family history of Anesthesia complication Bleeding disorder Social History Smoking and tobacco status: former smoker Alcohol intake: never Substance/Drug Use: never Lives independently: Yes Household members: spouse Marital status: Current occupational status: employed Physical Exam Const: COMMON NORMALS: alert HENMT: COMMON NORMALS: normocephalic HEAD & SCALP: normocephalic Neck/C-Spine: COMMON NORMALS: full ROM Resp: COMMON NORMALS: normal respiratory effort Cardio: COMMON NORMALS: regular rate RATE: regular rate GI: PALPATION: No Tenderness to palpation present (GI) : BLADDER/KIDNEY EXAM: Yes CVA tenderness on the right Back/Pelvis: GENERAL BACK: Yes CVA tenderness LUMBAR SPINE/LOWER BACK: Yes paraspinal muscle tenderness Lumbar paraspinal muscle tenderness: right Extremity: COMMON NORMALS: full ROM Neuro: SENSORIUM/ORIENTATION: Yes alert Skin: COMMON NORMALS: turgor normal GENERAL SKIN EXAM: turgor normal Course Vital Signs: Vital signs: Vital Signs Temperature 97.6 F 05/18/23 15:09 Pulse Rate 65 05/18/23 15:09 Respiratory Rate 16 05/18/23 15:09 Blood Pressure 123/76 05/18/23 15:09 Pulse Oximetry 97 05/18/23 15:09 Oxygen Delivery Me thod Room Air 05/18/23 15:09 MDM - Back Pain/Injury Medical Decision Making 52-year-old male patient comes in today for complaints of right flank pain radiating to his low back. On exam patient appears nontoxic. Abdomen soft with some mild right upper quadrant tenderness. Respirations are even lungs are clear to auscultation. Vital signs are normal. Differential diagnosis includes renal calculi, muscle strain, intervertebral disc disease, facet arthropathy. Urinalysis was clean. CT of the abdomen and pelvis noted no hydronephrosis or urinary tract calculi at this time. Patient did have a 4 cm left renal mass of indeterminate significance. It was recommended for patient to have further evaluation with MRI or noncontrast CT. Also it was noted patient of thoracic compression fracture and degenerative changes of the spine. Believe the pain most likely is due to musculoskeletal. Recommended follow-up with primary care for further evaluation of abnormality of the left kidney. Patient reported understanding and agreed to plan. Labs Radiology Impressions Abdomen/Pelvis CT 05/18/23 17:28 IMPRESSION: 1. Indeterminate 4 cm left renal mass. Further evaluation such as with non urgent MRI examination recommended 2. No urinary tract calculi are identified 3. Old granulomatous disease 4. Mild thickening of the urinary bladder wall. COMMENTS: Consistent with the [place] [employer]'s Incidental Findings Committee white paper (J Am Tayler Radiol 2018): Any incidental renal lesion less than 1 cm or classified as too small to characterize, or any incidental cystic renal lesion characterized as simple-appearing, is likely benign. No follow-up imaging is recommended for these lesions per consensus recommendations based on imaging criteria. Laboratory Results Urine Color Yellow (Yellow) 05/18/23 17:15 Urine Appearance Clear (CLEAR) 05/18/23 17:15 Urine pH 5 (5-7) 05/18/23 17:15 Ur Specific Surrency 1.015 (1.005-1.030) 05/18/23 17:15 Urine Protein Neg (Negative) 05/18/23 17:15 Urine Glucose (UA) Norm (Normal) 05/18/23 17:15 Urine Ketones Negative (Negative) 05/18/23 17:15 Urine Blood Neg (Negative) 05/18/23 17:15 Urine Nitrate Negative (Negative) 05/18/23 17:15 Urine Bilirubin Neg (Negative) 05/18/23 17:15 Urine Urobilinogen Norm mg/dL (Negative) 05/18/23 17:15 Ur Leukocyte Esterase Negative (Negative) 05/18/23 17:15 Discharge Plan Discharge Patient Disposition: Home Clinical Impression: Renal colic on right side, Abnormal CT scan, kidney Condition: Stable Prescriptions: No Action loratadine [Claritin] 10 mg tablet 10 mg PO DAILY multivitamin Tablet 1 tab PO QAM acetaminophen [Tylenol] 325 mg tablet 650 mg PO BID cholecalciferol (vitamin D3) 5,000 unit capsule 5,000 unit PO ONCE testosterone cypionate 200 mg/mL oil 100 mg IM .bi-weekly Qty: 2 2RF Rx Instructions: Please disregard prior rx armodafinil 250 mg tablet 250 mg PO QAM Qty: 30 1RF losartan 100 mg tablet 100 mg PO DAILY Qty: 90 1RF metoprolol tartrate 25 mg tablet 25 mg PO BID Qty: 180 1RF sertraline 100 mg tablet See Rx Instructions .ROUTE .COMPLEX Qty: 30 5RF Dose Instruction: TAKE 1 TABLET BY MOUTH DAILY Rx Instructions: TAKE 1 TABLET BY MOUTH DAILY brexpiprazole 2 mg tablet 2 mg PO DAILY Qty: 90 0RF chlorthalidone 25 mg tablet 25 mg PO DAILY Qty: 90 1RF cyclobenzaprine 10 mg tablet 10 mg PO TID PRN (Reason: muscle spasm) Qty: 180 1RF (DME) BD Eclipse Luer-Fatmata 21 gauge x 1 1/2 needle See Rx Instructions .ROUTE .MEDSUPPLY Qty: 50 0RF Rx Instructions: As directed potassium chloride [Klor-Con M20] 20 mEq tablet,ER particles/crystals 20 meq PO DAILY Qty: 180 0RF pantoprazole 40 mg tablet,delayed release (DR/EC) See Rx Instructions .ROUTE .COMPLEX Qty: 90 1RF Dose Instruction: TAKE ONE TABLET BY MOUTH DAILY Rx Instructions: TAKE ONE TABLET BY MOUTH DAILY Discharge Orders: Discharge ED (Routine); Ordered 05/18/23 Ordered By: Marco A Hernandez Referrals: Fatoumata Callaway DO [Primary Care Provider] - Discharge Diet: Usual diet Discharge Activity: Increase activity as tolerated Patient Instructions: Abdominal Pain (ED) Activity Restrictions/Additional Instructions: Continue with routine care. Drink plenty of water and fluids. Follow-up with primary care regarding abnormality on the left kidney for further evaluation and treatment. Monitor for signs of fever greater than 100.4, nausea and vomiting, blood in vomit or stool. Maintain normal activity is much as possible. Return to ER for new concerns or worsening symptoms. Coding Level of Care Code ED Cigarette Roller for Yomaira Fleming
[2023-05-18 17:19] LABS: Add Urine Microscopic? NO; Charge for UA Resulting for Rev
--- NOTE | 2023-05-18 17:28 | CTR_ITS ---
PROCEDURE INFORMATION: Exam: CT Abdomen And Pelvis Without Contrast Exam date and time: 05/18/2023 5:35 PM Age: 52 years old Clinical indication: Abdominal pain; Flank; Right; Prior surgery; Surgery date: 6+ months; Surgery type: Gb, pacemaker; Additional info: RT flank pain HX of stones TECHNIQUE: Imaging protocol: Computed tomography of the abdomen and pelvis without contrast. Radiation optimization: All CT scans at this facility use at least one of these dose optimization techniques: automated exposure control; mA and/or kV adjustment per patient size (includes targeted exams where dose is matched to clinical indication); or iterative reconstruction. REPORTING DATA: Count of CT and Cardiac NM exams in prior 12 months: This patient has received [address] and 0 known cardiac nuclear medicine studies in the 12 months prior to the current study. COMPARISON: CR XR KUB [id number] 05/16/2020 11:33 AM RADIATION DOSE METRICS: Total DLP (mGy-cm): 858.24 FINDINGS: Limitations: The absence of intravenous contrast lessens the sensitivity of this study for solid organ abnormalities. Liver: There is no focal abnormality within the liver. Gallbladder and bile ducts: There has been a cholecystectomy. Pancreas: The pancreas is normal. Spleen: The spleen demonstrates punctate calcifications, consistent with remote granulomatous organism exposure. Adrenal glands: The adrenal glands are normal. Kidneys and ureters: Is 1.5 cm sized benign-appearing cortical cyst mid right kidney. There is an indeterminate slightly lobulated 4 cm sized mass arising from the anterior aspect of the left kidney. This appears to be septated with some calcification of the septations.Recommend non-emergent MRI without and with contrast or non-emergent CT without and with contrast. MRI is preferred for masses under 1.5 cm. There is no evidence of hydronephrosis. There is no evidence of renal or ureteral calcifications. Stomach and bowel: There is no evidence of colitis/diverticulitis. There is no evidence of intestinal obstruction. Appendix: A normal appendix is identified. Intraperitoneal space: There is no evidence of free intraperitoneal fluid. Vasculature: Unremarkable. No abdominal aortic aneurysm. Lymph nodes: There is no evidence of lymphadenopathy. Urinary bladder: There is mild thickening of the urinary bladder wall. Please correlate for any clinical signs or symptoms of urinary tract infection. The bladder wall thickening may be due to muscular hypertrophy. Reproductive: Unremarkable as visualized. Bones/joints: There are moderate degenerative changes in the lower thoracic spine. Soft tissues: Unremarkable. CT/CT kidney stone [id number] IMPRESSION: 1. Indeterminate 4 cm left renal mass. Further evaluation such as with non urgent MRI examination recommended 2. No urinary tract calculi are identified 3. Old granulomatous disease 4. Mild thickening of the urinary bladder wall. COMMENTS: Consistent with the [place] [employer]'s Incidental Findings Committee white paper (J Am Tayler Radiol 2018): Any incidental renal lesion less than 1 cm or classified as too small to characterize, or any incidental cystic renal lesion characterized as simple-appearing, is likely benign. No follow-up imaging is recommended for these lesions per consensus recommendations based on imaging criteria.
[2023-05-18 17:36] LABS: Bilirubin Urine Neg (Negative); Blood Urine Neg (Negative); Glucose Urine UA Norm (Normal); Ketones Urine Negative (Negative); Leukocyte Esterase Urine Negative (Negative); Nitrate Urine Negative (Negative); Protein Urine Neg (Negative); Specific Gravity, Urine 1.015 (1.005-1.030); Urine Appearance Clear (CLEAR); Urine Color Yellow (Yellow); Urobilinogen Urine Norm (Negative); pH Urine 5 (5-7)
--- NOTE | 2023-05-19 10:25 | DCPLANNER ---
Addendum entered by Phyllis Herrera 06/05/23 09:42: Patient had a follow up appointment to establish care with Dr. Callaway at [facility] - patient did attend appointment. Original Note: resource development manager had message to speak with patient about scheduling a follow up appointment for patient with his primary care physician. resource development manager spoke with patient he stated that he would like help in getting an appointment scheduled. resource development manager called [facility], scheduled a follow up appointment for Thursday, June 01, 2023 at 9:[address] Callaway. resource development manager gave patient the appointment information.
== END 2023-05-18 18:58 | disposition home or self-care (01) ==
PROVIDERS: Emergency Provider Nurse Practitioner Family; PCP Family Medicine
DX: N23 Unspecified renal colic (principal); R93.429 Abnormal radiologic findings on diagnostic imaging of unspecified kidney; N28.89 Other specified disorders of kidney and ureter; E78.5 Hyperlipidemia, unspecified; I10 Essential (primary) hypertension; Z98.61 Coronary angioplasty status; Z87.891 Personal history of nicotine dependence
CPT/HCPCS: 74176; 81003; 99284

== ENCOUNTER → 2023-06-05 09:03 | Outpatient (BNVA) | payer OTHER, SELFPAY | PROVIDERS: PCP Family Medicine; Visit Provider Family Medicine | DX: I10 Essential (primary) hypertension (principal); R79.89 Other specified abnormal findings of blood chemistry | CPT/HCPCS: 80053; 80061; 82043; 84403; 85025 ==

== ENCOUNTER 2023-06-17 11:14 | Outpatient (CLI) | payer OTHER, SELFPAY ==
--- NOTE | 2023-06-17 12:30 | CT_ITS ---
WS: [id number] CT ABDOMEN AND PELVIS WITH AND WITHOUT CONTRAST HISTORY: left renal mass TECHNIQUE: Unenhanced 5 mm axial imaging first performed through the abdomen. Post contrast imaging t hrough the abdomen and pelvis. Oral contrast has been provided. Sagittal and coronal reformats are s ubmitted. All CT scans at [facility] use at least one of these dose optimization techniques: automated exposure control; mA and/or kV adjustment per patient size (includes targeted exams where d ose is matched to clinical indication); or iterative reconstruction. CONTRAST: Omnipaque 350; 95 mL IV. DLP: 1524.71 mGy.cm COMPARISON: 05/18/2023 Lung bases are clear. No significant hiatal hernia. Heart is normal size. Right heart defibrillator w ires are noted. Left kidney: Left kidney is normal size. There is a lobulated cystic mass with septations and wall ca lcification in the superior pole. Hounsfield units are 28 on the precontrast imaging. Hounsfield unit s increased to 38 on the postcontrast studies. This lobulated mass measures 3.7 x 4.0 cm and extends over a length of 5.0 cm. There are numerous septations present with minimal enhancement of the septat ions. This is not a simple cyst. The remaining left kidney is negative. Prior cholecystectomy. Normal size liver and spleen. Splenic granulomatous. Mild pancreatic atrophy. No bile duct dilatation. No pancreatic duct dilatation. No adrenal mass. 1.2 cm cyst upper pole right kidney. Very minimal atherosclerosis aorta. Stomach is distended with oral contrast. No small bowel wall obstruction. Mild constipation. Normal a ppendix. No adenopathy or ascites. No renal vein thrombosis. Negative urinary bladder. No destructive bone lesions. IMPRESSION: 1. Lobulated cystic mass with septations, wall calcification and indeterminate enhancement superior p ole left kidney. Mass measures 3.7 x 4.0 x 5.0 cm. Bosniak IIF. Indeterminate lesion will need to be followed over multiple years. Recommend renal mass CT protocol follow-up in 6 months. Consider evalua tion by urology. 2. Prior cholecystectomy. 3. No adenopathy or expansile bone lesions. No renal vein thrombosis.
[2023-06-17] MEDS: iohexol 350 mg/mL 500 mL Btl (per mL) PO (12:50)
[2023-06-17] MEDS: iohexol 350 mg/mL 500 mL Btl (per mL) IV (12:50)
== END 2023-06-17 11:15 | disposition home or self-care (01) ==
PROVIDERS: PCP Family Medicine; Visit Provider Family Medicine
DX: N28.89 Other specified disorders of kidney and ureter (principal); Z90.49 Acquired absence of other specified parts of digestive tract
CPT/HCPCS: 74178; Q9967

== ENCOUNTER → 2023-07-03 08:30 | Outpatient (BNVA) | payer OTHER, SELFPAY | PROVIDERS: PCP Family Medicine; Visit Provider Internal Medicine | DX: F32.9 Major depressive disorder, single episode, unspecified (principal); G47.33 Obstructive sleep apnea (adult) (pediatric); R53.83 Other fatigue | CPT/HCPCS: 82533; 84305; 84439; 84443 ==

== ENCOUNTER → 2023-11-27 11:32 | Outpatient (BNVA) | payer OTHER, SELFPAY | PROVIDERS: PCP Family Medicine; Visit Provider Family Medicine | DX: R79.89 Other specified abnormal findings of blood chemistry (principal); I10 Essential (primary) hypertension | CPT/HCPCS: 80053; 84403 ==

== ENCOUNTER 2024-04-20 06:37 | Emergency (ER) | payer OTHER, SELFPAY ==
--- NOTE | 2024-04-20 06:51 | XRR_ITS ---
PROCEDURE INFORMATION: Exam: XR Right Hip Exam date and time: 04/20/2024 7:52 AM Age: 53 years old Clinical indication: Hip pain; Right hip; Patient HX: No known trauma TECHNIQUE: Imaging protocol: Radiologic exam of the right hip. Views: 1 view hip with pelvis when performed. COMPARISON: CT abdomen pelvis wo/w [id number] 06/17/2023 12:47 PM FINDINGS: Bones/joints: The visualized pelvis is grossly intact. The hip joint maintains normal alignment. No proximal femoral fracture identified. Soft tissues: Unremarkable. XR/XR hip RT 2-3V wo/w pel* [id number] IMPRESSION: 1. No fracture identified. 2. No significant degenerative changes identified.
[2024-04-20 07:02] VITALS: BP 127/82; PULSE 65; RESP 18; TEMP 36.8; O2SAT 95; BMI 31.0
[2024-04-20 11:06] VITALS: BP 120/78; PULSE 60; RESP 18; O2SAT 100
--- NOTE | 2024-04-20 11:06 | W.ED.EXTPRO ---
HPI - Extremity Problem General: Chief complaint: Extremity Problem,Nontraumatic Stated complaint: right side hip pain Time Seen by Provider: 04/20/24 06:40 Source: patient Mode of arrival: ambulatory Limitations: no limitations History of Present Illness: 53-year-old male states that over the last week he has been having right low back pain and right hip pain with radiation down his right leg. States he seen a chiropractor has had no improvement is worse with walking rates his pain a 5 out of 10 currently it is improved with rest denies any bowel or bladder incontinence denies any fever Associated symptoms: Deny chest pain, fever(s) or rash Review of Systems Const: Denies: fever(s), chills, body aches or change in appetite ENMT: Denies: throat pain or dental pain Card: Denies: chest pain Resp: Denies: dyspnea GI: Denies: abdominal pain, nausea, vomiting or diarrhea : Denies: dysuria Musc: Reports: back pain; Denies: neck pain Skin/Breast: Denies: rash Neuro: Denies: headache(s) PFSH ED PFSH: Medical History Psychiatric care Dyslipidemia ESTEFANI (obstructive sleep apnea) Hypertension H/O sinus bradycardia Surgical History History of cholecystectomy Hx of coronary angioplasty 1993 H/O esophagogastroduodenoscopy Status post placement of other cardiac pacemaker H/O wrist surgery Family History Other CAD (coronary artery disease) Cancer Diabetes Hypertension Denies family history of Anesthesia complication Bleeding disorder Social History Smoking and tobacco/nicotine status: former use of tobacco/nicotine Alcohol intake: never Substance/Drug Use: never Lives independently: Yes Household members: spouse Marital status: Current occupational status: employed Physical Exam Const: COMMON NORMALS: no acute distress, patient oriented x3 and healthy appearing HENMT: COMMON NORMALS: normocephalic and atraumatic HEAD & SCALP: normocephalic and atraumatic Eye: COMMON NORMALS: Equal, round and reactive pupils present and EOMs intact bilaterally PUPIL: Yes Equal, round and reactive pupils present Neck/C-Spine: COMMON NORMALS: full ROM and supple Chest: COMMONS NORMALS: normal inspection of the chest Resp: COMMON NORMALS: normal respiratory effort Cardio: COMMON NORMALS: regular rate, regular rhythm and No murmurs present (Cardio) RATE: regular rate RHYTHM: regular rhythm GI: COMMON NORMALS: Normal to inspection, nondistended, normoactive bowel sounds present, Soft to palpation, non-tender and no masses PALPATION: Yes Soft to palpation Back/Pelvis: OTHER: Tenderness to right lower back no midline tenderness no saddle anesthesia Extremity: COMMON NORMALS: normal to inspection and full ROM Neuro: COMMON NORMALS: patient oriented x3, moves all extremities and no focal motor deficits Psych: COMMON NORMALS: mental status grossly normal, Normal thought process present and cooperative THOUGHT PROCESS: Normal thought process present Skin: COMMON NORMALS: no rashes or lesions noted and no wounds GENERAL SKIN EXAM: no rashes or lesions noted Course Vital Signs: Vital signs: Vital Signs Temperature 98.2 F 04/20/24 07:02 Pulse Rate 65 04/20/24 07:02 Respiratory Rate 18 04/20/24 07:02 Blood Pressure 127/82 04/20/24 07:02 Pulse Oximetry 95 04/20/24 07:02 Oxygen Delivery Me thod Room Air 04/20/24 07:02 MDM - Extremity (Nontraumatic) Medical Decision Making Patient presents with low back pain is likely sciatica he has no signs of epidural abscess or cord compression he is to take Tylenol for pain at home we will start him on a muscle relaxant he is given steroids in the ER as well he is to follow-up with his PCP and return if worsening Medical Records I reviewed the patient's medical records. Lab Data Radiology Impressions Hip/Pelvis X-Ray 04/20/24 06:51 IMPRESSION: 1. No fracture identified. 2. No significant degenerative changes identified. All radiology interpretation(s) finalized by discharge Discharge Plan Discharge Patient Disposition: Home Clinical Impression: Low back pain Qualifiers: Chronicity: acute Back pain laterality: right Sciatica presence: with sciatica Sciatica laterality: sciatica of right side Qualified Code(s): M54.41 - Lumbago with sciatica, right side Condition: Stable Prescriptions: New methocarbamol 750 mg tablet 750 mg PO Q6H PRN (Reason: spasms) Qty: 20 0RF No Action loratadine [Claritin] 10 mg tablet 10 mg PO DAILY multivitamin Tablet 1 tab PO QAM acetaminophen [Tylenol] 325 mg tablet 650 mg PO BID cholecalciferol (vitamin D3) 5,000 unit capsule 5,000 unit PO ONCE bupropion HCl [Wellbutrin XL] 300 mg tablet extended release 24 hr 300 mg PO QAM Qty: 30 2RF duloxetine [Cymbalta] 60 mg capsule,delayed release(DR/EC) 120 mg PO DAILY Qty: 60 2RF trazodone 50 mg tablet 100 mg PO .HS PRN (Reason: insomnia) Qty: 60 2RF prednisone 20 mg tablet 40 mg PO DAILY Qty: 10 0RF Rx Instructions: Take 40 mg in AM with food armodafinil 150 mg tablet 150 mg PO QAM Qty: 30 2RF metoprolol tartrate 25 mg tablet See Rx Instructions .ROUTE .COMPLEX Qty: 180 1RF Dose Instruction: TAKE ONE TABLET BY MOUTH TWICE DAILY Rx Instructions: TAKE ONE TABLET BY MOUTH TWICE DAILY potassium chloride [Klor-Con M20] 20 mEq tablet,ER particles/crystals 40 meq PO DAILY Qty: 180 1RF cyclobenzaprine 10 mg tablet 10 mg PO TID PRN (Reason: muscle spasm) Qty: 180 1RF (DME) BD Eclipse Luer-Fatmata 21 gauge x 1 1/2 needle See Rx Instructions .ROUTE .MEDSUPPLY Qty: 50 0RF Rx Instructions: As directed testosterone cypionate 200 mg/mL oil 100 mg IM .bi-weekly Qty: 1 5RF pantoprazole 40 mg tablet,delayed release (DR/EC) See Rx Instructions .ROUTE .COMPLEX Qty: 90 1RF Dose Instruction: TAKE 1 TABLET BY MOUTH ONCE DAILY Rx Instructions: TAKE 1 TABLET BY MOUTH ONCE DAILY losartan 100 mg tablet See Rx Instructions .ROUTE .COMPLEX Qty: 90 1RF Dose Instruction: take 1 tablet by mouth once daily Rx Instructions: take 1 tablet by mouth once daily chlorthalidone 25 mg tablet See Rx Instructions .ROUTE .COMPLEX Qty: 90 1RF Dose Instruction: TAKE ONE TABLET BY MOUTH DAILY Rx Instructions: TAKE ONE TABLET BY MOUTH DAILY Discharge Orders: Discharge ED (Routine); Ordered 04/20/24 Ordered By: Natacha Rubio Referrals: Gene Higuera MD [Primary Care Provider] - 4-7 days Discharge Diet: Advance as tolerated Discharge Activity: Resume usual activity Patient Instructions: Sciatica (ED) Coding Level of Care Code ED Supervisor Coil Winding for Yomaira Fleming
[2024-04-20] MEDS: methocarbamol 750 mg Tablet 1500 MG PO (11:15)
[2024-04-20] MEDS: ketorolac 60 mg/2 mL INJ IM (11:15)
[2024-04-20] MEDS: dexamethasone 10 mg/mL INJ IM (11:16)
[2024-04-20 11:28] VITALS: BP 111/78; PULSE 61; RESP 18; O2SAT 100
== END 2024-04-20 11:45 | disposition home or self-care (01) ==
PROVIDERS: Emergency Provider Emergency Medicine; PCP Family Medicine
DX: M54.41 Lumbago with sciatica, right side (principal); Z87.891 Personal history of nicotine dependence; E78.5 Hyperlipidemia, unspecified; I10 Essential (primary) hypertension; Z98.61 Coronary angioplasty status; Z95.0 Presence of cardiac pacemaker
CPT/HCPCS: 73502; 96372; 99284; J1100; J1885

== ENCOUNTER → 2024-06-24 09:51 | Outpatient (BNVA) | payer OTHER, SELFPAY | PROVIDERS: PCP Family Medicine; Visit Provider Family Medicine | DX: R79.89 Other specified abnormal findings of blood chemistry; Z12.5 Encounter for screening for malignant neoplasm of prostate | CPT/HCPCS: 80053; 80061; 84153; 84403; 84439; 84443; 85025 ==

== ENCOUNTER 2024-08-11 13:33 | Outpatient (CLI) | payer OTHER, SELFPAY ==
--- NOTE | 2024-08-11 14:15 | USCV_ITS ---
Teddy Gil Age: 53 Gender: M : 1970 Exam Date: 08/11/2024 13:48 Ordering Phys: Mika Pedraza M.D ([email or web address]) Technologist: Exam Location: [facility] [place] Indication: cp hx of pacemaker BP: 130 / 80 HR: 99 Rhythm: Sinus Technical Quality: Adequate MEASUREMENTS (Male / Female) Normal Values 2D ECHO LV Diastolic Diameter PLAX 4.3 cm 4.2 - 5.9 / 3.9 - 5.3 cm IVS Diastolic Thickness 1.1 cm 0.6 - 1.0 / 0.6 - 0.9 cm IVS Systolic Thickness 1.9 cm LVPW Diastolic Thickness 1.2 cm 0.6 - 1.0 / 0.6 - 0.9 cm LVPW Systolic Thickness 1.6 cm LVOT Diameter 2.0 cm LV Ejection Fraction 2D Teich 66.5 % LV Ejection Fraction MOD 4C 67.2 % LV Ejection Fraction MOD 2C 67.5 % LV Ejection Fraction 2C AL 67.6 % LA Diameter 3.6 cm RA Systolic Volume 4C AL 36.4 ml RA Systolic Volume 4C MOD 35.4 ml Aorta at Sinotubular Diameter 2.6 cm IVC Diameter 2.1 cm M-MODE LA Ao Ratio MM 1.3 AV Cusp Separation MM 2.3 cm DOPPLER AV Peak Velocity 148.0 cm/s LVOT Peak Velocity 108.0 cm/s AV Area Cont Eq vti 2.3 cm squared AV Area Cont Eq pk 2.3 cm squared MV Peak Velocity 93.0 cm/s MV Area PHT 3.3 cm squared Mitral E to A Ratio 1.1 TV Peak Velocity 137.5 cm/s TR Peak Velocity 166.0 cm/s TR Peak Gradient 11.0 mmHg TV Peak E Velocity 93.0 cm/s Right Atrial Pressure 3.0 mmHg Pulmonary Artery Systolic Pressu 14.0 mmHg PV Peak Velocity 120.0 cm/s FINDINGS Left Ventricle Normal left ventricular size, systolic function and wall thickness, with no regional wall motion abnormalities. Left ventricular ejection fraction is estimated at 60 %. Normal diastolic function. Right Ventricle The right ventricle is normal in size and function. Right Atrium The right atrium is normal in size. Left Atrium The left atrium is normal in size. Mitral Valve Mildly thickened mitral valve. Mild mitral annular calcification. Trace mitral valve regurgitation. Aortic Valve Moderate aortic valve calcification. Mild aortic valve stenosis, mean gradient 3.8 mmHg, MAY 2.3 cm squared. Mild aortic valve regurgitation. Tricuspid Valve Structurally normal tricuspid valve without significant stenosis or regurgitation. Pulmonary artery systolic pressure is normal. Pulmonic Valve Structurally normal pulmonic valve without significant stenosis. There is no pulmonic regurgitation. Pericardium Normal pericardium without effusion. Aorta Normal ascending aorta dimension. IVC The inferior vena cava appears normal. CONCLUSIONS Normal left ventricular size, systolic function and wall thickness, with no regional wall motion abnormalities. Left ventricular ejection fraction is estimated at 60 %. Normal diastolic function. Moderate aortic valve calcification. Mild aortic valve stenosis, mean gradient 3.8 mmHg, MAY 2.3 cm squared. Mild aortic valve regurgitation. There is no pericardial effusion. Pulmonary artery systolic pressure is within normal limits. Right atrial pressure is around 5 mm of mercury. Martha Naqvi MD (Electronically Signed) Final Date: 12 August 2024 08:55 S
== END 2024-08-11 13:34 | disposition home or self-care (01) ==
LOC: RAD 13:34
PROVIDERS: PCP Family Medicine; Visit Provider Internal Medicine
DX: I70.0 Atherosclerosis of aorta (principal); R07.9 Chest pain, unspecified
CPT/HCPCS: 93306

== ENCOUNTER → 2025-01-20 08:35 | Outpatient (BNVA) | payer OTHER, SELFPAY | PROVIDERS: PCP Family Medicine; Visit Provider Family Medicine | DX: R79.89 Other specified abnormal findings of blood chemistry (principal) | CPT/HCPCS: 80053; 84403; 85025 ==

== ENCOUNTER 2025-02-08 09:38 | Day surgery (SDC) | payer OTHER, SELFPAY ==
[2025-02-08 09:50] VITALS: BMI 31.0
[2025-02-08 09:55] VITALS: BP 145/102; PULSE 75; RESP 18; TEMP 36.4; O2SAT 97
--- NOTE | 2025-02-08 09:56 | W.PM.OPSUD ---
Surgery/Procedure H&P Update DATE OF PROCEDURE: February 08, 2025 DATE H&P PERFORMED: 01/24/25 H&P UPDATE INFORMATION: I have reviewed H&P completed within last 30 days, I have examined patient prior to procedure, No changes to prior documentation, Changes to prior documentation as noted here and Risks and benefits of the procedure reviewed PLANNED PROCEDURE: Operation Date: 02/08/25 11:00 Proposed Procedures p Colonoscopy [id number] G0121 Z12.11(Not Applicable) - Tejas Lakhani MD
--- NOTE | 2025-02-08 09:59 | ANES.PREANE2 ---
Pre-Anesthetic Assessment Height/Weight: Height 1.75 m Weight 95.254 kg Temp Pulse Resp BP Pulse Ox O2 Del Method 97.5 F L 75 18 145/102 97 Room Air 02/08/25 09:55 02/08/25 09:55 02/08/25 09:55 02/08/25 09:55 02/08/25 09:55 02/08/25 09:55 Preop Diagnosis: screening Operation Date: 02/08/25 11:00 Proposed Procedures p Colonoscopy [id number] Z12.11(Not Applicable) - Tejas Lakhani MD Familial anesthetic complications: none Was Beta Paul taken within 24 hours: Yes Was Clonidine taken within 24 hours: N/A Last intake: Intake Last Liquid Date 02/07/25 Last Liquid Time 20:00 Last Solid Date 02/06/25 Last Solid Time 18:00 Social Tobacco (chewing tobacco held 30 days) Exam alert, oriented x 3, clear to auscultation bilaterally and No regular rate & rhythm Airway Submandibular: within normal limits Cervical ROM: within normal limits Mallampati: Class II Dentition: full History/ROS No significant history except as noted Pulmonary Sleep Apnea (CPAP compliant) CV/HEM Arrythmia (ICD placed in 1991 for SSS/Bradycardia) and Hypertension Mass on left kidney monitoring at this time not believed to be cancer. Hepatic None reported GI Gastroesophageal Reflux Disease Metabolic Hyperlipidemia [facility] None reported Neuropsych Depression Anesthetic Plan ASA status: 3 Anesthesia: MAC Medications/Allergies Home Medications ?Medication ?Instructions ?Recorded ?Confirmed ?Last Taken ?Type cholecalciferol (vitamin D3) 125 5,000 unit PO DAILY 11/14/19 02/08/25 02/07/25 History mcg (5,000 unit) capsule multivitamin 1 tab PO QAM 11/14/19 02/08/25 02/07/25 History needle (disp) 21 G 21 gauge x 1 #50 ea 09/18/22 02/08/25 Unknown Rx 1/2 (BD Eclipse Luer-Fatmata) bupropion HCl 300 mg 24 hr tablet, 300 mg PO QAM #30 tabs 06/24/24 02/08/25 02/07/25 Rx extended release (Wellbutrin XL) methocarbamol 750 mg tablet 750 mg PO Q6H PRN spasms #60 tabs 09/25/24 02/08/25 02/07/25 Rx testosterone cypionate 200 mg/mL 100 mg (0.5 mL) IM .bi-weekly #1 mL 11/22/24 02/08/25 02/07/25 Rx intramuscular oil omeprazole 40 mg capsule,delayed 40 mg PO DAILY #90 caps 11/24/24 02/08/25 02/07/25 Rx release potassium chloride 20 mEq 40 meq (2 x 20 mEq) PO DAILY #180 12/13/24 02/08/25 02/08/25 Rx tablet,extended tabs release(part/cryst) (Klor-Con M) armodafinil 200 mg tablet 200 mg PO QAM #90 tabs 12/19/24 02/08/25 02/07/25 Rx chlorthalidone 25 mg tablet 25 mg PO DAILY 02/06/25 02/08/25 02/07/25 History losartan 100 mg tablet 100 mg PO DAILY 02/06/25 02/08/25 02/07/25 History metoprolol tartrate 25 mg tablet 25 mg PO BID 02/06/25 02/08/25 02/08/25 History Allergies Allergy/AdvReac Type Severity Reaction Status Date / Time ezetimibe (From Zetia) Allergy rash Verified 02/08/25 09:47 ibuprofen Allergy ALGY-Rash Verified 02/08/25 09:47 NSAIDS (Non-Steroidal AdvReac Unknown Unknown Verified 02/08/25 09:47 Anti-Inflamma Rveeypb-SHS-FhM Reductase AdvReac allergy Verified 02/08/25 09:47 Inhibitor (Boougua-Zjf-Vfa senitive Reductase Inhibitor) [facility] Anesthesia Medical History Psychiatric care Dyslipidemia ESTEFANI (obstructive sleep apnea) Hypertension H/O sinus bradycardia Surgical History History of cholecystectomy Hx of coronary angioplasty 1993 H/O esophagogastroduodenoscopy Status post placement of other cardiac pacemaker H/O wrist surgery Family History Other CAD (coronary artery disease) Cancer Diabetes Hypertension Denies family history of Anesthesia complication Bleeding disorder Social History Smoking and tobacco/nicotine status: light tobacco/nicotine user smokeless tobacco Smokeless tobacco user: chewing tobacco Alcohol intake: never Substance/Drug Use: never Lives independently: Yes Household members: spouse Marital status: Current occupational status: employed Data Anesthesia Cardiac Studies: Echocardiogram 08/11/24 Sestamibi Stress Test (Cardiology) 08/12/22
[2025-02-08] MEDS: sodium chloride 0.9% 500 ML 30 ML IV (10:01)
--- NOTE | 2025-02-08 10:10 | PC.NURSE ---
PT BELONGINGS STORED IN SECURE LOCKER
[2025-02-08 10:41] VITALS: BP 104/69; PULSE 71; RESP 16; TEMP 36.2; O2SAT 96
[2025-02-08 10:50] VITALS: BP 112/73; PULSE 61; RESP 16; O2SAT 98
--- NOTE | 2025-02-08 11:25 | ANE.PACU2 ---
Inpatient post-anesthesia follow up: Airway intact: Yes Vital signs: Temperature 97.1 F Pulse Rate 61 Respiratory Rate 16 Blood Pressure 112/73 Pulse Oximetry 98 Oxygen Delivery Me thod Room Air Oxygen Flow Rate Fraction of Inspir ed Oxygen Hydration adequate: Yes Nausea and vomiting: No Pain level: 1 Mental status: Baseline
== END 2025-02-08 11:25 | disposition home or self-care (01) ==
PROVIDERS: PCP Family Medicine; Visit Provider Surgery
PROC: 0DJD8ZZ Inspection of Lower Intestinal Tract, Via Natural or Artificial Opening Endoscopic (ICD-10-PCS; CPT 45378; principal; 2025-02-08 11:00)
DX: Z12.11 Encounter for screening for malignant neoplasm of colon (principal); D12.2 Benign neoplasm of ascending colon; D12.4 Benign neoplasm of descending colon; K63.5 Polyp of colon; I10 Essential (primary) hypertension; K21.9 Gastro-esophageal reflux disease without esophagitis; E78.5 Hyperlipidemia, unspecified; Z79.899 Other long term (current) drug therapy; G47.30 Sleep apnea, unspecified; Z95.810 Presence of automatic (implantable) cardiac defibrillator; F17.220 Nicotine dependence, chewing tobacco, uncomplicated
CPT/HCPCS: 45380; 45385; 88305; J2704; J7040

== ENCOUNTER → 2025-07-14 09:58 | Outpatient (BNVA) | payer OTHER, SELFPAY | PROVIDERS: PCP Family Medicine; Visit Provider Family Medicine | DX: Z12.5 Encounter for screening for malignant neoplasm of prostate (principal); R79.89 Other specified abnormal findings of blood chemistry | CPT/HCPCS: 80053; 80061; 84153; 84403; 85025 ==

== ENCOUNTER 2025-07-19 15:58 | Outpatient (CLI) | payer OTHER, SELFPAY ==
--- NOTE | 2025-07-19 16:08 | CT_ITS ---
WS: [id number] CT abdomen pelvis wo/w [id number] REASON FOR EXAM: COMPLEX RENAL CYST IV CONTRAST ADMINISTERED: Multiple axial images were obtained. Coronal and sagittal reconstructions. COMPARISON CT scan of the abdomen and pelvis 06/17/2023. TOTAL EXAM DLP: 1456.[address] scans at [facility] use at least one of these dose optimization techniques: automated exposure control; mA and/or kV adjustment per patient size (includes targeted exams where dose is matched to clinical indication); or iterative reconstruction. FINDINGS: Current CT examination is unchanged compared to the previous study. Normal liver, spleen, and pancreas. Central cyst in the right kidney is unchanged in dimensions. The complex septated exophytic cyst extending from the anterior renal hilus of the left kidney kidney is unchanged compared to the previous examination. No abdominal mass, adenopathy, free fluid, or focal fluid collection. PELVIS: No mass or adenopathy. No free fluid or focal fluid collection. No significant bony abnormality of the pelvis or lumbar spine. CT/CT abdomen pelvis wo/w [id number] IMPRESSION: Stable CT scan of the abdomen and pelvis. The complex left renal mass/cyst unchanged.
[2025-07-19] MEDS: iohexol 350 mg/mL 500 mL Btl (per mL) IV (17:41)
== END 2025-07-19 15:59 | disposition home or self-care (01) ==
LOC: RAD 16:03
PROVIDERS: PCP Family Medicine; Visit Provider Urology
DX: N28.1 Cyst of kidney, acquired (principal)
CPT/HCPCS: 74178